=== PATIENT | male | born 1995 ===

== ENCOUNTER 2018-09-13 01:01 | Emergency (ER) | payer OTHER ==
[~2018-09-13] VITALS: Ht 162.6 cm; Wt 54.5 kg
[2018-09-13 01:02] VITALS: BP 117/67
--- NOTE | 2018-09-13 01:07 | NUR ---
pT TOO INEBRIATED TO ENGAGE IN HX. STATES, "i DRANK ALOT."
== END 2018-09-13 04:52 | disposition home or self-care (01) ==
LOC: ER 01:02
DX: F10.920 Alcohol use, unspecified with intoxication, uncomplicated (principal); R41.82 Altered mental status, unspecified; Y90.9 Presence of alcohol in blood, level not specified
CPT/HCPCS: 99283

== ENCOUNTER 2024-06-13 03:56 | Emergency (ER) | payer MEDICAID ==
[2024-06-13 04:15] VITALS: BP 119/75; PULSE 114; RESP 22; O2SAT 98
== END 2024-06-13 04:20 ==
LOC: ER 03:57
DX: Z02.89 Encounter for other administrative examinations (principal); R45.1 Restlessness and agitation; Z59.00 Homelessness unspecified
CPT/HCPCS: 99283

== ENCOUNTER 2024-06-18 16:31 | Emergency (ER) | payer MEDICAID ==
[~2024-06-18] VITALS: Ht 175.3 cm; Wt 61.4 kg
[2024-06-18 16:38] VITALS: BP 120/67; PULSE 81; TEMP 98.3; O2SAT 100
[2024-06-18 19:30] VITALS: RESP 18
[2024-06-18] MEDS: ketorolac trometh 15mg/ml vial 15 MG/ML ML IM ONE (19:30)
== END 2024-06-18 19:36 | disposition home or self-care (01) ==
LOC: ER 16:31
DX: S46.811A Strain of other muscles, fascia and tendons at shoulder and upper arm level, right arm, initial encounter (principal); M25.511 Pain in right shoulder; Z59.00 Homelessness unspecified; X58.XXXA Exposure to other specified factors, initial encounter; Y93.89 Activity, other specified; Y92.89 Other specified places as the place of occurrence of the external cause; Y99.8 Other external cause status
CPT/HCPCS: 73030; 96372; 99283; J1885